=== PATIENT | male | born 1990 | race Caucasian/White ===

== ENCOUNTER 2022-08-20 06:53 | Emergency (ER) | payer MEDICAID ==
[~2022-08-20] VITALS: Ht 167.6 cm; Wt 82.6 kg
[2022-08-20 07:01] VITALS: BP 129/74
[2022-08-20] MEDS ORDERED: FAMOTIDINE 20MG/2ML VIAL IV ONE (08:30)
[2022-08-20] MEDS ORDERED: OMEP40CA20 PO (08:35)
[2022-08-20] MEDS ORDERED: MAG-55 MT (08:35)
[2022-08-20 08:46] LABS: BASOPHILS % 0.2 % (0.0-2.0); EOSINOPHILS % 2.6 % (0.0-5.0); HEMATOCRIT. 45.9 % (42.0-52.0); HEMOGLOBIN. 15.5 g/dL (14.0-18.0); LYMPHOCYTES % 32.6 % (20.0-50.0); MEAN CORPUSCULAR HEMOGLOBIN 27.6 pg (28.0-32.0); MEAN CORPUSCULAR VOLUME 81.9 fL (80.0-94.0); MEAN PLATELET VOLUME 10.4 fl (7.4-10.4); MONOCYTES % 7.7 % (2.0-8.0); NEUTROPHILS % 56.9 % (40.0-76.0); PLATELET 165 x1000/uL (130-400); RED BLOOD CELL COUNT 5.61 mill/uL (4.7-6.1)
[2022-08-20 08:49] LABS: CLARITY URINE CLEAR (CLEAR); COLOR URINE YELLOW (YELLOW); KETONES URINE NEGATIVE (NEGATIVE); LEUKOCYTE ESTERASE URINE NEGATIVE (NEGATIVE); NITRITE URINE NEGATIVE (NEGATIVE); OCCULT BLOOD URINE NEGATIVE (NEGATIVE); PROTEIN URINE NEGATIVE (NEGATIVE); SPECIFIC GRAVITY URINE 1.025 (1.005-1.030); UROBILINOGEN URINE 0.2 E.U./dL (0.2-1.0)
[2022-08-20 08:50] LABS: PROTHROMBIN TIME 10.3 sec (9.6-11.0)
[2022-08-20 09:33] LABS: CHLORIDE 106 mEq/L (98-107)
== END 2022-08-20 10:17 | disposition home or self-care (01) ==
LOC: ER 06:53
DX: R10.13 Epigastric pain (principal); R94.5 Abnormal results of liver function studies
CPT/HCPCS: 36415; 80053; 81003; 83690; 85025; 85610; 93005; 96374; 99284; J3490

== ENCOUNTER 2023-11-19 07:40 | Emergency (ER) | payer MEDICAID, MEDICARE ==
[~2023-11-19] VITALS: Ht 167.6 cm; Wt 76.0 kg
[~2023-11-19 07:40] MED LIST: MAG-55 MT; OMEP40CA20 PO
[2023-11-19 07:46] VITALS: O2SAT 100
[2023-11-19] MEDS ORDERED: ACETAMINOPHEN 325MG TABLET PO ONE (08:00)
[2023-11-19] MEDS ORDERED: TOPUD PO (08:39)
[2023-11-19] MEDS ORDERED: ACETAMINOPHEN 325MG TABLET PO NR (11:00)
[2023-11-19 12:00] VITALS: BP 118/74; PULSE 62; RESP 19; TEMP 98.9
== END 2023-11-19 12:01 | disposition home or self-care (01) ==
LOC: ER 07:40
DX: M25.512 Pain in left shoulder (principal)
CPT/HCPCS: 73030; 99283; A4565